=== PATIENT | female | born 1995 | race Two or more races ===

== ENCOUNTER 2020-03-29 04:23 | Inpatient (IN) | payer OTHER ==
[~2020-03-29] VITALS: Ht 170.2 cm; Wt 135.6 kg
== END 2020-03-31 18:21 | disposition home or self-care (01) | DRG 807 ==
LOC: LDR 04:23 → OB/GYN 20:07
PROVIDERS: ADMIT Obstetrics & Gynecology; ATTEND Obstetrics & Gynecology
PROC: 10E0XZZ Delivery of Products of Conception, External Approach (ICD-10-PCS; principal; 2020-03-29)
PROC: 0UQMXZZ Repair Vulva, External Approach (ICD-10-PCS; 2020-03-29)
PROC: 3E033VJ Introduction of Other Hormone into Peripheral Vein, Percutaneous Approach (ICD-10-PCS; 2020-03-29)
PROC: 3E0P7VZ Introduction of Hormone into Female Reproductive, Via Natural or Artificial Opening (ICD-10-PCS; 2020-03-29)
PROC: 4A1HXFZ Monitoring of Products of Conception, Cardiac Rhythm, External Approach (ICD-10-PCS; 2020-03-29)
DX: O42.02 Full-term premature rupture of membranes, onset of labor within 24 hours of rupture (principal); Z37.0 Single live birth; O71.82 Other specified trauma to perineum and vulva; Z3A.38 38 weeks gestation of pregnancy; Z20.822 Contact with and (suspected) exposure to COVID-19